=== PATIENT | male | born 1935 | race Caucasian/White ===

== ENCOUNTER 2018-03-11 16:41 | Emergency (ER) | payer OTHER ==
[~2018-03-11] VITALS: Ht 175.3 cm; Wt 77.1 kg
[~2018-03-11 16:41] MED LIST: ASPI81CH PO; DOXA2 PO; Simvastatin20 MG PO; ZESTORETIC 20-251 EA PO
[2018-03-11] MEDS ORDERED: Voltaren100 GM TOP (17:13)
== END 2018-03-11 17:20 | disposition home or self-care (01) ==
LOC: ER 16:41
DX: L03.113 Cellulitis of right upper limb (principal); I10 Essential (primary) hypertension; Z79.899 Other long term (current) drug therapy; Z79.82 Long term (current) use of aspirin
CPT/HCPCS: 99282; J0360; J0690; J7120

== ENCOUNTER → 2022-11-20 | Outpatient (CLI) | payer OTHER ==
[~2022-11-20] MED LIST changes: +Voltaren100 GM TOP
== END | disposition home or self-care (01) ==
LOC: LAB 14:54 → LAB SHORT 14:54
DX: R35.0 Frequency of micturition (principal)
CPT/HCPCS: 87086

== ENCOUNTER → 2023-01-01 | Outpatient (CLI) | payer OTHER ==
[2023-01-01 13:16] LABS: BASOPHILS ABSOLUTE AUTO 0.06 K/mm3 (0.00-0.23); BASOPHILS PERCENT AUTO 1 % (0-2); EOSINOPHILS ABSOLUTE AUTO 0.25 K/mm3 (0.00-0.68); EOSINOPHILS PERCENT AUTO 3 % (0-6); Hematocrit 35.8 % (37.0-53.0); Hemoglobin 11.8 g/dL (13.5-17.5); IMMATURE GRAN ABSOLUTE AUTO 0.02 K/mm3 (0.00-0.10); IMMATURE GRAN PERCENT AUTO 0 % (0-1); LYMPHOCYTES ABSOLUTE AUTO 1.28 K/mm3 (0.84-5.20); LYMPHOCYTES PERCENT AUTO 18 % (21-46); MONOCYTES ABSOLUTE AUTO 0.65 K/mm3 (0.16-1.47); MONOCYTES PERCENT AUTO 9 % (4-13); Mean Corpuscular HGB 31.5 pg (26.0-34.0); Mean Corpuscular Volume 96 fL (80-100); Mean Platelet Volume 10.5 fL (9.1-12.4); NEUTROPHILS ABSOLUTE AUTO 5.06 K/mm3 (1.96-9.15); NEUTROPHILS PERCENT AUTO 69 % (41-73); Platelet Count 247 K/mm3 (150-400); RDW Coefficient Variation 13.9 % (11.7-14.2); RDW Standard Deviation 48.4 fL (35.1-46.3); Red Blood Cell Count 3.75 M/mm3 (4.30-5.90); White Blood Cell Count 7.32 K/mm3 (4.00-11.30)
[2023-01-01 13:59] LABS: Uric Acid, Blood 5.5 mg/dL (3.5-7.2)
[2023-01-01 14:02] LABS: Alanine Aminotransfer (ALT/SGP 22 U/L (12-78); Albumin, Blood 3.6 g/dL (3.4-5.0); Albumin/Globulin Ratio 1.1 (0.8-1.8); Alk Phos 44 U/L (50-136); Anion Gap 5 mmol/L (6-16); Aspartate Aminotrans (AST/SGOT 17 U/L (12-37); Bilirubin, Total 0.7 mg/dL (0.1-1.0); Blood Urea Nitrogen 25 mg/dL (8-24); Bun/Creatinine Ratio 17.2 (12.0-20.0); CHOL/HDL RATIO 3.7; CO2, Blood 28 mmol/L (21-32); Calcium, Blood 9.2 mg/dL (8.5-10.1); Chloride, Blood 108 mmol/L (98-108); Cholesterol 156 mg/dL (50-200); Creatinine, Blood 1.45 mg/dL (0.60-1.20); Globulin, Blood 3.2 g/dL (2.2-4.0); Glomerular Filtration Rate 47 (60-); Glucose, Blood 96 mg/dL (70-99); HDL Cholesterol 42 mg/dL (>39); LDL/HDL RATIO 2.1; Low Density Lipoprotein Chol 88 mg/dL (0-110); Potassium, Blood 3.6 mmol/L (3.5-5.5); Sodium, Blood 141 mmol/L (136-145); Total Protein, Blood 6.8 g/dL (6.4-8.2); Triglycerides 130 mg/dL (30-160); Very Low Density Lipoprot Chol 26 mg/dL (6-32)
== END | disposition home or self-care (01) ==
LOC: LAB 12:23 → LAB SHORT 12:23
PROVIDERS: Family Medicine
DX: I10 Essential (primary) hypertension (principal); M1A.3410 Chronic gout due to renal impairment, right hand, without tophus (tophi); N42.9 Disorder of prostate, unspecified
CPT/HCPCS: 80053; 80061; 84153; 84550; 85025

== ENCOUNTER → 2023-08-06 | Outpatient (CLI) | payer OTHER ==
[2023-08-06 14:26] LABS: BASOPHILS ABSOLUTE AUTO 0.05 K/mm3 (0.00-0.23); BASOPHILS PERCENT AUTO 1 % (0-2); EOSINOPHILS ABSOLUTE AUTO 0.16 K/mm3 (0.00-0.68); EOSINOPHILS PERCENT AUTO 2 % (0-6); Hematocrit 34.9 % (37.0-53.0); Hemoglobin 11.2 g/dL (13.5-17.5); IMMATURE GRAN ABSOLUTE AUTO 0.02 K/mm3 (0.00-0.10); IMMATURE GRAN PERCENT AUTO 0 % (0-1); LYMPHOCYTES ABSOLUTE AUTO 1.08 K/mm3 (0.84-5.20); LYMPHOCYTES PERCENT AUTO 16 % (21-46); MONOCYTES ABSOLUTE AUTO 0.55 K/mm3 (0.16-1.47); MONOCYTES PERCENT AUTO 8 % (4-13); Mean Corpuscular HGB 31.4 pg (26.0-34.0); Mean Corpuscular HGB Conc 32.1 g/dL (31.5-36.5); Mean Corpuscular Volume 98 fL (80-100); Mean Platelet Volume 10.3 fL (9.1-12.4); NEUTROPHILS ABSOLUTE AUTO 4.83 K/mm3 (1.96-9.15); NEUTROPHILS PERCENT AUTO 72 % (41-73); Platelet Count 225 K/mm3 (150-400); RDW Coefficient Variation 14.2 % (11.7-14.2); RDW Standard Deviation 50.4 fL (35.1-46.3); Red Blood Cell Count 3.57 M/mm3 (4.30-5.90); White Blood Cell Count 6.69 K/mm3 (4.00-11.30)
[2023-08-06 15:04] LABS: Alanine Aminotransfer (ALT/SGP 20 U/L (12-78); Albumin, Blood 3.4 g/dL (3.4-5.0); Alk Phos 47 U/L (50-136); Anion Gap 6 mmol/L (6-16); Aspartate Aminotrans (AST/SGOT 18 U/L (12-37); Bilirubin, Total 0.3 mg/dL (0.1-1.0); Blood Urea Nitrogen 30 mg/dL (8-24); Bun/Creatinine Ratio 16.1 (12.0-20.0); CHOL/HDL RATIO 3.7; CO2, Blood 27 mmol/L (21-32); Calcium, Blood 8.7 mg/dL (8.5-10.1); Chloride, Blood 110 mmol/L (98-108); Cholesterol 189 mg/dL (50-200); Creatinine, Blood 1.86 mg/dL (0.60-1.20); Free Thyroxine 0.95 ng/dL (0.70-1.60); Globulin, Blood 3.3 g/dL (2.2-4.0); Glomerular Filtration Rate 35 (60-); Glucose, Blood 118 mg/dL (70-99); HDL Cholesterol 51 mg/dL (>39); LDL/HDL RATIO 2.3; Low Density Lipoprotein Chol 116 mg/dL (0-110); Potassium, Blood 3.9 mmol/L (3.5-5.5); Sodium, Blood 143 mmol/L (136-145); Total Protein, Blood 6.7 g/dL (6.4-8.2); Triglycerides 112 mg/dL (30-160); Uric Acid, Blood 6.3 mg/dL (3.5-7.2); Very Low Density Lipoprot Chol 22 mg/dL (6-32)
== END | disposition home or self-care (01) ==
LOC: LAB 11:28 → LAB SHORT 11:28
PROVIDERS: Family Medicine
DX: I10 Essential (primary) hypertension (principal); M1A.3410 Chronic gout due to renal impairment, right hand, without tophus (tophi); R53.83 Other fatigue
CPT/HCPCS: 80053; 80061; 84439; 84443; 84550; 85025

== ENCOUNTER 2023-08-30 09:01 | Day surgery (SDC) | payer OTHER ==
[~2023-08-30] VITALS: Ht 175.3 cm; Wt 70.7 kg
[2023-08-30] MEDS ORDERED: METO50ER PO (09:25)
[2023-08-30] MEDS ORDERED: ALFU10 PO (09:25)
[2023-08-30] MEDS ORDERED: Sanctura20 MG PO (09:26)
[2023-08-30] MEDS ORDERED: ALLO100 PO (09:26)
[2023-08-30 10:58] VITALS: BP 164/83
== END 2023-08-30 10:50 | disposition home or self-care (01) ==
LOC: ORSCSDS 09:01
PROVIDERS: Ophthalmology
PROC: 08RK3JZ Replacement of Left Lens with Synthetic Substitute, Percutaneous Approach (ICD-10-PCS; principal; 2023-08-30 10:30)
DX: H25.12 Age-related nuclear cataract, left eye (principal); I10 Essential (primary) hypertension; Z79.82 Long term (current) use of aspirin; Z79.899 Other long term (current) drug therapy
CPT/HCPCS: J2250; J3010; J3301; J7040; V2632

== ENCOUNTER 2023-09-13 16:02 | Inpatient (IN) | payer OTHER ==
[~2023-09-13] VITALS: Ht 172.7 cm; Wt 68.9 kg
[~2023-09-13 16:02] MED LIST changes: +ALFU10 PO; +ALLO100 PO; +METO50ER PO; +Sanctura20 MG PO
[2023-09-13 16:20] LABS: BASOPHILS ABSOLUTE AUTO 0.04 K/mm3 (0.00-0.23); BASOPHILS PERCENT AUTO 1 % (0-2); EOSINOPHILS ABSOLUTE AUTO 0.12 K/mm3 (0.00-0.68); EOSINOPHILS PERCENT AUTO 2 % (0-6); Hematocrit 35.8 % (37.0-53.0); Hemoglobin 11.8 g/dL (13.5-17.5); IMMATURE GRAN ABSOLUTE AUTO 0.05 K/mm3 (0.00-0.10); IMMATURE GRAN PERCENT AUTO 1 % (0-1); LYMPHOCYTES ABSOLUTE AUTO 1.63 K/mm3 (0.84-5.20); LYMPHOCYTES PERCENT AUTO 24 % (21-46); MONOCYTES ABSOLUTE AUTO 0.47 K/mm3 (0.16-1.47); MONOCYTES PERCENT AUTO 7 % (4-13); Mean Corpuscular HGB 31.9 pg (26.0-34.0); Mean Corpuscular Volume 97 fL (80-100); Mean Platelet Volume 9.9 fL (9.1-12.4); NEUTROPHILS ABSOLUTE AUTO 4.51 K/mm3 (1.96-9.15); NEUTROPHILS PERCENT AUTO 66 % (41-73); Platelet Count 196 K/mm3 (150-400); RDW Coefficient Variation 13.5 % (11.7-14.2); RDW Standard Deviation 48.3 fL (35.1-46.3); White Blood Cell Count 6.82 K/mm3 (4.00-11.30)
[2023-09-13 16:36] LABS: International Normalized Ratio 1.05
[2023-09-13 16:45] LABS: Albumin, Blood 3.7 g/dL (3.4-5.0); Albumin/Globulin Ratio 1.2 (0.8-1.8); Bilirubin, Total 0.6 mg/dL (0.1-1.0); Calcium, Blood 9.1 mg/dL (8.5-10.1); Creatinine, Blood 1.83 mg/dL (0.60-1.20); Globulin, Blood 3.1 g/dL (2.2-4.0); Potassium, Blood 3.7 mmol/L (3.5-5.5); Total Protein, Blood 6.8 g/dL (6.4-8.2)
[2023-09-13 17:56] LABS: Source, Urine Clean Catch
[2023-09-13 18:02] LABS: Appearance, Urine Clear (Clear); Bilirubin, Urine Neg (Neg); Blood, Urine 1+ (Neg); Color, Urine Yellow (P-Yellow); Glucose Qualitative, Urine Neg (Neg); Ketones, Urine Neg (Neg); Leukocyte Esterase, Urine Neg (Neg); Nitrite, Urine Neg (Neg); Protein, Urine 3+ (Neg); Urobilinogen, Urine NORM (Normal)
[2023-09-13 18:21] LABS: Bacteria Few /hpf; Red Blood Cells, Urine 0-2 /hpf (0-2); Squamous Epithelial Cells Not Seen /hpf (Few); White Blood Cells, Urine 0-2 /hpf (0-5)
[2023-09-13] MEDS ORDERED: ALFUZOSIN HCL10 MG PO (18:35)
[2023-09-13 20:56] VITALS: BP 171/90
--- NOTE | 2023-09-13 20:58 | NUR ---
ADMISSION RECEIVED REPORT FROM OTILIA CARDONA VIA TELEPHONE. PT ARRIVES TO ROOM WITH SON (KALA) AT THE BEDSIDE. PT IS ALERT AND ORIENTED, PLEASANT AND COOPERATIVE. DENIES COMPLAINTS AT THIS TIME. ABLE TO TRANSFER SELF TO THE BED INDEPENDENTLY WITH STEADY GAIT. BP ELEVATED AT THIS TIME, WILL RECHECK AFTER PT IS RESTING TO REEVALUATE. OTHER VSS, PT IS SHOWING SINUS RHYTHM ON TELE WITH GOOD EFFECT FROM MEDICATIONS GIVEN IN THE ER. PROVIDED WITH SANDWICH AND WATER, DENIES OTHER NEEDS AT THIS TIME. WILL INITIATE ADMIT ORDERS WITH PLAN TO HAND-OFF PT TO THE PRIMARY RN VALERIA. BED ALARM ON FOR HIGH FALL RISK, CALL LIGHT AND BELONGINGS IN REACH.
[2023-09-13 21:20] VITALS: BP 157/76
[2023-09-13 23:33] VITALS: BP 137/72
[2023-09-14] VITALS (8 sets, daily range): BP systolic 142–199; BP diastolic 64–116
--- NOTE | 2023-09-14 04:26 | NUR ---
SHIFT SUMMARY NO ACUTE CHANGES SINCE ARRIVAL TO UNIT. PT A&O X4. [place]. APPEARS FORGETFUL AT TIMES. STEADY GAIT; REPORTS WALKER AT BASELINE. SR ON MONITOR WITH HR 70'S. BP STABLE. ON RA WITH SPO2 >92%. PPP. BED ALARM ON FOR SAFETY D/T FORGETTING TO CALL WHEN GETTING UP TO URINATE. PT USING URINAL AT BEDSIDE. REPOSITIONING SELF IN BED INDEPENDENTLY. NS INFUSING PER EMAR. BED IN LOWEST POSITION AND CALL LIGHT WITHIN REACH. THIS RN WILL REPORT TO ONCOMING DAYSHIFT RN.
[2023-09-14 04:43] LABS: CHOL/HDL RATIO 4.6; Cholesterol 146 mg/dL (50-200); HDL Cholesterol 32 mg/dL (>39); LDL/HDL RATIO 2.9; Low Density Lipoprotein Chol 91 mg/dL (0-110); Triglycerides 113 mg/dL (30-160); Very Low Density Lipoprot Chol 22 mg/dL (6-32)
--- NOTE | 2023-09-14 12:02 | NUR ---
PT DOWN FOR MRI AT 1200 VIA WHEELCHAIR. PT ON RA. NS ON STANDBY
--- NOTE | 2023-09-14 15:23 | NUR ---
Pt. s awake in bed and welcomes my visit. A family member is present. Pt. is pleasant, but just unsettled by the delay in getting results back from bloodwork and radiology. Facilitate a life review. Listen with interest, empathy, and a calming presence. Seek to normalize the Pt. experience. Pt. displayed evidence of engagement and awareness. Pt. 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
--- NOTE | 2023-09-14 17:24 | NUR ---
SHIFT SUMMARY/TRANSFER PT AO/X4 AND COOPERATIVE OF CARE. PT ABLE TO EXPRESS NEEDS. PT NEEDED TO BE REMINDED A COUPLE OF TIMES DURING SHIFT THAT STAFF SHOULD PRESENT WHEN PT NEEDED TO GET UP TO USE THE URINAL, PT VERBALIZED UNDERSTANDING. PERMISSIVE HYPERTENSION DURING SHIFT FOR POSSIBLE STROKE, NO DEFICITS OF STROKE SYMPTOMS NOTED DURING SHIFT. OTHER VSS THROUGHOUT SHIFT.NO REPORT OF CHEST PAIN/PRESSURE. NO REPORT OF SOB. PT UP TO BEDSIDE MULTIPLE TIMES TO USE URINAL, TOLERATED WELL. MRI, ECOCARDIOGRAM, AND CAROTID DUPLEX DONE TODAY, SEE CHARTS. PT INFOMRED OF NEEDING A HEART MONITOR FOR 2 WEEKS AT DISCHARGE. HYDRALAZINE ORDERED TID FOR HTN. NS RUNNING PER ORDER. REPORT GIVEN TO MORTGAGE PROCESSING CLERK FOR TRNSFER AT 1724. PT TRANSFERED AT 1730 VIA WHEELCHAIR. PT PERSONAL BELONGINGS TRANSFERED WITH PT ALONG WITH CHART. PT ABLE TO TRANSFER SELF TO AND FROM WHEELCHAIR ON HIS OWN, TOLERATED WELL.
--- NOTE | 2023-09-14 18:06 | NUR ---
PATIENT WAS WHEELCHAIRED OVER FROM PCU TO HIS SURGICAL ROOM. PATIENT IS A&OX4. HE WAS ABLE TO WALK FROM THE WHEELCHAIR TO THE BATHROOM A SBA WITH HIS PERSONAL CANE AND WITH 1 STAFF MEMBER TO HELP STEADY THE PATIENT. PATIENT WAS ALSO FURNITURE SURFING FROM THE BATHROOM TO THE BED. PATIENT IS NOW LAYING IN BED WITH CALL LIGHT IN REACH. THIS NURSE EDUCATED THE PATIENT TO USE HIS CALL LIGHT IF HE NEEDED TO USE THE BATHROOM AND PATIENT VERBALIZED UNDERSTANDING OF EDUCATION. PATIENT DENIED HIS DINNER TRAY. THIS NURSE CALLED DR. VANG TO REPORT PATIENTS HIGH BP READING. AWAITING FOR DR. VANG TO CALL THIS NURSE BACK.
[2023-09-15 05:43] LABS: BASOPHILS ABSOLUTE AUTO 0.04 K/mm3 (0.00-0.23); BASOPHILS PERCENT AUTO 1 % (0-2); EOSINOPHILS PERCENT AUTO 3 % (0-6); Hematocrit 35.6 % (37.0-53.0); Hemoglobin 11.9 g/dL (13.5-17.5); IMMATURE GRAN ABSOLUTE AUTO 0.03 K/mm3 (0.00-0.10); IMMATURE GRAN PERCENT AUTO 0 % (0-1); LYMPHOCYTES ABSOLUTE AUTO 1.03 K/mm3 (0.84-5.20); LYMPHOCYTES PERCENT AUTO 15 % (21-46); MONOCYTES ABSOLUTE AUTO 0.52 K/mm3 (0.16-1.47); MONOCYTES PERCENT AUTO 8 % (4-13); Mean Corpuscular HGB 32.2 pg (26.0-34.0); Mean Corpuscular HGB Conc 33.4 g/dL (31.5-36.5); Mean Corpuscular Volume 96 fL (80-100); Mean Platelet Volume 10.3 fL (9.1-12.4); NEUTROPHILS ABSOLUTE AUTO 4.96 K/mm3 (1.96-9.15); NEUTROPHILS PERCENT AUTO 73 % (41-73); Platelet Count 198 K/mm3 (150-400); RDW Coefficient Variation 13.5 % (11.7-14.2); RDW Standard Deviation 47.5 fL (35.1-46.3); White Blood Cell Count 6.78 K/mm3 (4.00-11.30)
--- NOTE | 2023-09-15 06:07 | NUR ---
SHIFT SUMMARY NO ACUTE CHANGES NOTED THROUGH THE NIGHT, PT REMAINS A&O X4, ON RA, AFEBRILE, TOLERATING PO INTAKE, DENIES PAIN, NSR/S.TACH PER PHTHALIC ACID PURIFIER, DENIES CP/PRESSURE, SBA TO BATHROOM W/FWW, PT HAS BEEN REFUSING TO CALL LFOR ASSISTANCE PRIOR TO GETTING OOB, BED ALARM HAS BEEN SET, PT IS VOIDING FREQUENTLY (APPROX EVERY 20-30 MINUTES), POST VOID BLADDER SCAN WAS DONE SHOWING >400 ML'S, PT DENIES PAIN/PRESSURE IN BLADDER & REFUSED STRAIGHT CATH, CONTINUOUS EDU PROVIDED ABOUT SAFETY & PRECAUTIONS, PT DENIES NEED. PT IS RESTING IN BED AT THIS TIME, RESP UNLABORED, CALL LIGHT IN REACH, BED ALARM IS ON, WCTM & REPORT TO DAY RN
[2023-09-15 06:34] VITALS: BP 174/93
[2023-09-15 07:05] LABS: Albumin, Blood 3.2 g/dL (3.4-5.0); Anion Gap 6 mmol/L (6-16); Blood Urea Nitrogen 31 mg/dL (8-24); Bun/Creatinine Ratio 20.7 (12.0-20.0); CO2, Blood 26 mmol/L (21-32); Calcium, Blood 8.8 mg/dL (8.5-10.1); Chloride, Blood 110 mmol/L (98-108); Glomerular Filtration Rate 45 (60-); Glucose, Blood 96 mg/dL (70-99); Phosphorus, Blood 2.6 mg/dL (2.5-4.9); Potassium, Blood 3.9 mmol/L (3.5-5.5); Sodium, Blood 142 mmol/L (136-145)
[2023-09-15 07:12] VITALS: BP 170/99
[2023-09-15 11:27] VITALS: BP 188/101
[2023-09-15 13:36] VITALS: BP 119/69
[2023-09-15] MEDS ORDERED: AMLO5 PO (13:49)
[2023-09-15] MEDS ORDERED: ATOR10 PO (13:50)
[2023-09-15] MEDS ORDERED: ELIQUIS2.5 MG PO (13:50)
--- NOTE | 2023-09-15 15:20 | NUR ---
DISCHARGE: PT DC TO HOME AT THIS TIME WITH FAMILY. VERBAL UNDERSTANDING OF DC INSTRUCTIONS, MEDICATIONS, FOLLOW UP. IV DC'D WNL. PLAN TO F/U SUNDAY AT [facility] TO HAVE ZIO PATCH PLACED. NEW SCRIPTS FAXED TO [facility] PER FAMILY REQUEST. PT LEFT VIA WHEELCHAIR TO CAR WITH BELONGINGS.
== END 2023-09-15 17:16 | disposition home or self-care (01) | DRG 309 ==
LOC: ER 16:02 → PCU 16:03 → SURS 09-14 16:33 → PCU 09-14 16:33 → SURS 09-14 17:47
PROVIDERS: Emergency Medicine; Internal Medicine; ADMIT Nurse Practitioner Acute Care
DX: I48.91 Unspecified atrial fibrillation (principal); G45.9 Transient cerebral ischemic attack, unspecified; G81.91 Hemiplegia, unspecified affecting right dominant side; R55 Syncope and collapse; N40.0 Benign prostatic hyperplasia without lower urinary tract symptoms; M19.90 Unspecified osteoarthritis, unspecified site; I12.9 Hypertensive chronic kidney disease with stage 1 through stage 4 chronic kidney disease, or unspecified chronic kidney disease; N18.30 Chronic kidney disease, stage 3 unspecified; E78.5 Hyperlipidemia, unspecified; M10.9 Gout, unspecified
CPT/HCPCS: 36415; 70450; 70551; 80053; 80061; 80069; 81001; 83036; 83735; 84443; 84484; 85025; 85610; 93005; 93010; 93306; 93880; 96374; 96375; 99285-25; A9270; G0378; J0360; J7030; J7512

== ENCOUNTER 2023-09-25 20:59 | Observation (INO) | payer OTHER ==
[~2023-09-25] VITALS: Ht 177.8 cm; Wt 60.7 kg
[~2023-09-25 20:59] MED LIST changes: +ALFUZOSIN HCL10 MG PO; +AMLO5 PO; +ATOR10 PO; +ELIQUIS2.5 MG PO
[2023-09-25 21:54] LABS: BASOPHILS ABSOLUTE AUTO 0.03 K/mm3 (0.00-0.23); BASOPHILS PERCENT AUTO 1 % (0-2); EOSINOPHILS ABSOLUTE AUTO 0.02 K/mm3 (0.00-0.68); EOSINOPHILS PERCENT AUTO 0 % (0-6); Hematocrit 33.3 % (37.0-53.0); Hemoglobin 11.3 g/dL (13.5-17.5); IMMATURE GRAN ABSOLUTE AUTO 0.02 K/mm3 (0.00-0.10); IMMATURE GRAN PERCENT AUTO 0 % (0-1); LYMPHOCYTES ABSOLUTE AUTO 0.38 K/mm3 (0.84-5.20); LYMPHOCYTES PERCENT AUTO 8 % (21-46); MONOCYTES ABSOLUTE AUTO 0.51 K/mm3 (0.16-1.47); MONOCYTES PERCENT AUTO 11 % (4-13); Mean Corpuscular HGB 31.9 pg (26.0-34.0); Mean Corpuscular HGB Conc 33.9 g/dL (31.5-36.5); Mean Corpuscular Volume 94 fL (80-100); Mean Platelet Volume 10.1 fL (9.1-12.4); NEUTROPHILS ABSOLUTE AUTO 3.91 K/mm3 (1.96-9.15); NEUTROPHILS PERCENT AUTO 80 % (41-73); Platelet Count 242 K/mm3 (150-400); RDW Coefficient Variation 13.1 % (11.7-14.2); RDW Standard Deviation 45.1 fL (35.1-46.3); Red Blood Cell Count 3.54 M/mm3 (4.30-5.90); White Blood Cell Count 4.87 K/mm3 (4.00-11.30)
[2023-09-25 22:24] LABS: Albumin, Blood 3.4 g/dL (3.4-5.0); Albumin/Globulin Ratio 0.9 (0.8-1.8); Bilirubin, Total 0.5 mg/dL (0.1-1.0); Bun/Creatinine Ratio 13.3 (12.0-20.0); Creatinine, Blood 1.73 mg/dL (0.60-1.20); Globulin, Blood 3.6 g/dL (2.2-4.0)
[2023-09-25 22:41] LABS: Source, Urine Clean Catch
[2023-09-25 22:54] LABS: Bilirubin, Urine Neg (Neg); Blood, Urine 5+ (Neg); Glucose Qualitative, Urine Neg (Neg); Ketones, Urine Neg (Neg); Leukocyte Esterase, Urine Neg (Neg); Nitrite, Urine Neg (Neg); Protein, Urine 3+ (Neg); Urobilinogen, Urine NORM (Normal)
[2023-09-25 23:06] LABS: Appearance, Urine Clear (Clear); Color, Urine Yellow (P-Yellow)
[2023-09-25 23:14] LABS: Bacteria Not Seen /hpf; Red Blood Cells, Urine 0-2 /hpf (0-2); Squamous Epithelial Cells Not Seen /hpf (Few); White Blood Cells, Urine 0-2 /hpf (0-5)
[2023-09-26 07:25] LABS: Hematocrit 32.3 % (37.0-53.0); Hemoglobin 10.9 g/dL (13.5-17.5)
[2023-09-26 07:44] LABS: Bun/Creatinine Ratio 14.3 (12.0-20.0); Calcium, Blood 8.5 mg/dL (8.5-10.1); Creatinine, Blood 1.61 mg/dL (0.60-1.20); Potassium, Blood 4.5 mmol/L (3.5-5.5)
[2023-09-26 08:19] VITALS: BP 147/84
[2023-09-26 15:29] VITALS: BP 132/84
== END 2023-09-26 16:57 | disposition home health service (06) ==
LOC: ER 20:59 → ERHOLD 21:00 → MEDS 21:00 → ER 09-26 04:26 → ERHOLD 09-26 04:26 → MEDS 09-26 04:26 → ERHOLD 09-26 08:10 → MEDS 09-26 11:29
PROVIDERS: Family Medicine; Student in an Organized Health Care Education/Training Program; ADMIT Internal Medicine
DX: R53.1 Weakness (principal); N17.9 Acute kidney failure, unspecified; D63.1 Anemia in chronic kidney disease; Z86.73 Personal history of transient ischemic attack (TIA), and cerebral infarction without residual deficits; Z66 Do not resuscitate; N18.30 Chronic kidney disease, stage 3 unspecified; I12.9 Hypertensive chronic kidney disease with stage 1 through stage 4 chronic kidney disease, or unspecified chronic kidney disease; Z72.0 Tobacco use; R79.89 Other specified abnormal findings of blood chemistry
CPT/HCPCS: 80048; 80053; 81001; 84484; 85014; 85018; 85025; 93005; 93010; 96360; 96361; 97116; 97161; 97530; 99285-25; A9270; G0378; J7030